=== PATIENT | male | born 1935 | race Caucasian/White ===

== ENCOUNTER 2023-11-19 14:40 | Inpatient (IN) ==
[2023-11-19] MEDS: OPTIRAY 320 125ml IV ONE (14:48)
--- NOTE | 2023-11-19 14:54 | Emergency Department Note ---
Impression & Plan Stroke-like symptoms, Fall, Fracture of wrist ED Provider Note NAME: KASSIE DICKERSON AGE: 88 SEX: M : 1935 ARRIVES VIA: Ambulance INFORMANT: Patient ED PROVIDER(S): Denton Mackay DO CHIEF COMPLAINT: Slurred speech and left-sided weakness HPI: Patient is an 88-year-old gentleman who presents to the ER with past medical history of an intracerebral hemorrhage, hypertension and cerebral infarct/CVA x 3. Patient notes that he went to get up from a chair around 12:00 and was dizzy and fell to the ground. He noticed some left arm weakness and some slurred speech. He admits to previous history of 3 previous strokes. He denies any brain bleeds. No chest pain or shortness of breath. No belly pain nausea vomiting or diarrhea. No dysuria urgency or frequency. No other exacerbating or remitting factors. Additional history provided by EMS and notes that he had a left-sided facial droop as well as left arm weakness. Additional history was obtained by daughter eventually who notes that he did have a previous brain bleed back in 2021. ADDITIONAL HISTORY OBTAINED: Per HPI Chronic Medical/Social Conditions Affecting Care: Per HPI PAST MEDICAL HISTORY:See Below PAST SURGICAL HISTORY:See Below FAMILY HISTORY:See Below SOCIAL HISTORY:See Below HOME MEDICATIONS:See Below ALLERGIES:See Below VITALS:See Below PHYSICAL EXAMINATION: GENERAL: Sitting up in bed, alert, well appearing, well nourished, no distress, non-toxic EYE EXAM: normal conjunctiva. PERRL and EOM's intact. OROPHARYNX: no exudate, no erythema, lips, buccal mucosa, and tongue normal and mucous membranes are moist NECK: supple, no nuchal rigidity, no adenopathy, non-tender LUNGS: Clear to auscultation. Normal chest wall mechanics HEART: no murmurs, S1 normal and S2 normal ABDOMEN: abdomen soft, non-tender, normo-active bowel sounds, no masses, no rebound or guarding. LOWER EXTREMITIES: No pitting edema. NEURO EXAM: Normal sensorium, cranial nerves II-XII intact with the exception of a slight left-sided facial droop, normal speech, weakness of the left arm with grasp as well as flexion extension of the wrist shoulder., no weakness of legs. No drift. Finger to nose intact. Gross sensation intact. MEDICAL DECISION MAKING: Patient is an 88-year-old male who presents ER for above-stated complaint. IV was established blood work is obtained. I received medical command call and due to left arm weakness and slurred speech stroke alert was called. Discussed with [facility] several times labs show no significant leukocytosis or anemia. INR unremarkable. BMP was fairly unremarkable with a slightly low magnesium at 1.3. T. bili LFTs were unremarkable. UA was negative. CTA of the head and neck was discussed and reviewed with telestroke neurology and after multiple discussions with family and finally receiving records from [facility] we were able to determine that this gentleman was not a TNK candidate due to the previous history of an intracerebral hemorrhage. This was eventually discovered and confirmed as well in [facility] records by her she telestroke neurologist. I updated the patient and daughter in regards to this. Patient was discussed with the hospitalist for further evaluation management treatment. Allowed for permissive hypertension. Consults/Care Managements Discussions: Per [facility] Triage Nursing notes reviewed. Limited review of prior medical records performed Vital Signs: reviewed and remarkable for no significant abnormalities Differential diagnosis: Differential Diagnosis includes but is not limited to ischemic Stroke, hemorrhagic stroke, bells palsy, mass, neoplasm, migraine headache, seizure, subarachnoid hemorrhage, TIA, and transient global amnesia. ER treatment provided: See below Diagnostics interpreted by me include EKG and cardiac monitoring as listed below: -Cardiac Monitoring: An order was placed for continuous cardiac monitoring. The monitor shows a rate of 62 with sinus rhythm. -ECG: Sinus rhythm rate 69 Left axis PVCs QTc 456 -Laboratory studies:Interpreted by me as stated above in MDM and shown below. Imaging studies: Xrays: As interpreted by me: X-rays of the left wrist show left distal radial and scaphoid fracture CTs show: CT angios of the head and neck were negative Procedures:none Critical Care:I have personally spent 31 minutes of critical care time in the direct management of this patient. This includes bedside care, interpretation of diagnostic studies, and testing, discussion with consultants, patient, and family members, and other required patient management activities. This 31 minutes is in excess of all separately billable procedures. Past Med/Surg History Medical History Atrial fibrillation hx of 4-5yrs, currently has a loop recordered in placed---follows with Dr. River Wood Cerebral infarction x3--last Oct 2021--has limited visual field, uses a walker to ambulate; [facility] Constipation Diabetes mellitus Hearing loss Hypertension Overactive bladder Scoliosis Surgical History History of eye surgery History of hernia surgery History of left common carotid artery stent placement History of loop recorder currently in placed, placed Fall 2021 History of tooth extraction Status post trigger finger release Family History Other No family history of adverse response to anesthesia Denies family history of Crohn's disease Colorectal cancer Ulcerative colitis Social History (Updated 11/19/23 @ 18:30 by Juany Day PA-C) Smoking Status: Former smoker Second Hand Exposure: No; Do You Dip or Chew Tobacco: No; Hx Alcohol Use: No Hx Substance Use: No Preferred Language: Israeli Communication Ability: Effective Relay Associate Required: No Beliefs That Will Affect Care: None Current Living Situation: Retirement Current Living Situation Comment: [place] in [employer] current occupational status: retired Feels Safe at Home: Yes Assistive Devices: Glasses, Hearing Aid - Bilateral and Walker Allergies Allergies Allergy/AdvReac Type Severity Reaction Status Date / Time rivaroxaban [From Xarelto] AdvReac Mild instructed Verified 11/19/23 16:02 not to take due to hx of brain bleed Home Meds Home Medications Medication Instructions Recorded Confirmed acetaminophen 500 mg tablet 500 mg PO Q4 PRN Pain 11/19/23 11/19/23 (Tylenol Extra Strength) aspirin 81 mg tablet,delayed 81 mg PO DAILY 11/19/23 11/19/23 release atorvastatin 20 mg tablet 20 mg PO HS 11/19/23 11/19/23 celecoxib 100 mg capsule (Celebrex) 100 mg PO QAM 11/19/23 11/19/23 docusate sodium 100 mg capsule 100 mg PO BID 11/19/23 11/19/23 hydrochlorothiazide 25 mg tablet 12.5 mg PO DAILY 11/19/23 11/19/23 isosorbide mononitrate 60 mg 30 mg PO QAM 11/19/23 11/19/23 tablet,extended release 24 hr losartan 100 mg tablet 100 mg PO DAILY 11/19/23 11/19/23 metformin 500 mg tablet 500 mg PO BID 11/19/23 11/19/23 metoprolol succinate 50 mg 50 mg PO DAILY 11/19/23 11/19/23 tablet,extended release 24 hr multivitamin 1 tab PO QAM 11/19/23 11/19/23 omeprazole 20 mg capsule,delayed 20 mg PO DAILY 11/19/23 11/19/23 release terbinafine HCl 1 % topical cream 1 applic topical BID 11/19/23 11/19/23 Results & Data (ED) Vital Signs Vital Signs - 24 hr 11/19/23 15:02 11/19/23 15:02 11/19/23 15:07 Temperature 36.5 C Temperature Source Oral Pulse Rate 71 73 Pulse Rate from SpO2 Sensor Pulse Rhythm Regular Pulse Strength Normal Respiratory Rate 20 23 Respiratory Effort / Characteristics Non-Labored Spontaneous Respiratory Depth Normal Respiratory Pattern Regular Blood Pressure 170/99 H 170/99 H Blood Pressure Mean 122 122 Blood Pressure Position Sitting Pulse Oximetry 96 96 97 Oxygen Delivery Method Room Air Room Air Room Air Sepsis Recent Fever Within 48 Hours No Sepsis New/Unexplained Change in Mental Status No Sepsis Action Taken by Nursing No Action Required 11/19/23 15:11 11/19/23 15:19 11/19/23 15:30 Temperature Temperature Source Pulse Rate 72 68 73 Pulse Rate from SpO2 Sensor 72 90 Pulse Rhythm Pulse Strength Respiratory Rate 20 16 Respiratory Effort / Characteristics Respiratory Depth Respiratory Pattern Blood Pressure 178/76 H 192/84 H Blood Pressure Mean 110 120 Blood Pressure Position Pulse Oximetry 94 92 Oxygen Delivery Method Room Air Room Air Sepsis Recent Fever Within 48 Hours Sepsis New/Unexplained Change in Mental Status Sepsis Action Taken by Nursing 11/19/23 15:45 11/19/23 16:01 Temperature Temperature Source Pulse Rate 68 72 Pulse Rate from SpO2 Sensor 69 69 Pulse Rhythm Pulse Strength Respiratory Rate 25 H 22 Respiratory Effort / Characteristics Respiratory Depth Respiratory Pattern Blood Pressure 175/78 H 194/87 H Blood Pressure Mean 110 122 Blood Pressure Position Pulse Oximetry 94 96 Oxygen Delivery Method Room Air Room Air Sepsis Recent Fever Within 48 Hours Sepsis New/Unexplained Change in Mental Status Sepsis Action Taken by Nursing Laboratory Data 11/19/23 15:08 11/19/23 15:08 Lab Results 11/19/23 Range/Units 15:08 WBC 7.71 (4.8-10.8) K/ul RBC 4.40 L (4.70-6.10) M/uL Hgb 13.7 L (14.0-18.0) g/dl Hct 39.6 L (42.0-52.0) % MCV 90.0 (80.0-100.0) fL MCH 31.1 (25.0-34.0) pg MCHC 34.6 (32.0-36.0) g/dL RDW Std Deviation 44.6 (36.4-46.3) fL RDW Coeff of Anjel 13.6 (11.5-14.5) % Plt Count 179 (130-400) K/uL MPV 10.1 (9.4-12.4) fL Immature Gran % (Auto) 0.5 % Neut % (Auto) 75.8 % Lymph % (Auto) 16.5 % [place] % (Auto) 4.9 % Eos % (Auto) 1.9 % Baso % (Auto) 0.4 % Neut # (Auto) 5.84 (1.40-6.50) K/uL Lymph # (Auto) 1.27 (1.20-3.40) K/uL [place] # (Auto) 0.38 (0.11-0.59) K/uL Eos # (Auto) 0.15 (0.00-0.50) K/uL Baso # (Auto) 0.03 (0.00-0.20) K/uL Immature Gran # (Auto) 0.04 (0.01-0.20) K/uL PT 11.2 (9.0-12.0) Seconds INR 1.0 (0.9-1.1) APTT 28 (21-31) Seconds PTT Ratio 1.0 Sodium 138 (136-145) mmol/L Potassium 4.1 (3.5-5.1) mmol/L Chloride 109 H (98-107) mmol/L Carbon Dioxide 21 (21-32) mmol/L Anion Gap 8 (3-11) BUN 20 (6-23) mg/dl Creatinine 0.89 (0.6-1.4) mg/dl Est Cr Clr Drug Dosing 62.5 ml/min Est GFR ( Amer) 89.1 ml/min Est GFR (Non-Af Amer) 76.9 ml/min BUN/Creatinine Ratio 22.5 H (10-20) Glucose 138 H (70-99(Fasting)) mg/dl Calcium 7.1 L (8.6-10.3) mg/dl Magnesium 1.3 L (1.7-2.4) mg/dl Total Bilirubin 0.4 (0.2-1.0) mg/dl AST 19 (13-39) U/L ALT 20 (7-52) U/L Alkaline Phosphatase 59 (34-104) U/L Troponin I High Sens 6.8 (0-20) pg/ml Total Protein 4.9 L (6.0-8.3) gm/dl Albumin 3.1 L (3.4-5.0) gm/dl Globulin 1.8 L (2.5-4.0) gm/dl Albumin/Globulin Ratio 1.7 (0.9-2) Administered Medications Discontinued Medications Acetaminophen (Ofirmev) 1,000 mg in 100 mls @ 400 mls/hr IV NOW STA Stop: 11/19/23 16:20 Last Infusion: 11/19/23 16:32 Dose: Infused Documented By: Admin: 11/19/23 16:17 Dose: 400 mls/hr Documented By: EREN Magnesium Sulfate/Dextrose (Magnesium Sulfate / D5w) 1 gm in 100 mls @ 50 mls/hr IV Q2H HAILEE Stop: 11/19/23 20:14 Last Infusion: 11/19/23 19:39 Dose: Infused Documented By: Admin: 11/19/23 16:23 Dose: 50 mls/hr Documented By: EREN Ioversol (Optiray 320 125ml) 118 ml IV ONCE ONE Stop: 11/19/23 14:49 Last Admin: 11/19/23 14:48 Dose: 118 ml Documented By: KIMBERLY Labetalol HCl (Labetalol Hcl Iv 5 Mg/Ml 20ml) 10 mg IV NOW STA Stop: 11/19/23 16:07 Last Admin: 11/19/23 16:16 Dose: 10 mg Documented By: EREN Co-signed By: MILAN Imaging Data Radiologist's Impression: Head CT 11/19/23 14:36 CT head/brain wo con CLINICAL HISTORY: 88 years-old Male with neuro deficit, acute stroke suspected. Acute strokelike symptoms TECHNIQUE: Multiple axial CT images of the head were obtained without contrast. A dose lowering technique was utilized adhering to the principles of ALARA. COMPARISON: CTA head of same day, head CT 10/05/2022 FINDINGS: No acute intracranial hemorrhage, midline shift, intracranial mass, hydrocephalus, territorial ischemia or abnormal extra-axial collection. Involutional changes with chronic microvascular ischemic disease. Right occipital encephalomalacia from chronic insult. Unchanged linear calcifications within the left external capsule/lentiform nuclear distribution. Study is mildly motion degraded. Cerebral vascular calcifications. The calvarium is intact. Prior bilateral lens repair. The paranasal sinuses, mastoid air cells, and middle ear cavities are clear. IMPRESSION: No acute intracranial abnormality. ACT 112: Negative or not required by law. The above report was generated using voice recognition software. It may contain grammatical, syntax or spelling errors. Electronically signed by: Faustino Pierce M.D. 11/19/2023 4:04 PM Head CTA 11/19/23 14:36 HEAD CTA HISTORY: Left-sided weakness. neuro deficit, acute stroke suspected TECHNIQUE: Multiaxial CT images of the head were performed both before and after the intravenous administration of contrast to evaluate the major cerebral vessels. 3D/MIP images were also obtained. Sagittal and coronal reformats were reviewed. A dose lowering technique was utilized adhering to the principles of ALARA. COMPARISON: None. FINDINGS: There is no mass, hematoma, midline shift, or acute infarct. Encephalomalacia within the right occipital lobe consistent with an old right MORTAR MAKER territory infarct. Visualized intracranial internal carotid arteries, distal vertebral arteries, and basilar artery are widely patent. There is no significant stenosis, occlusion, or aneurysm seen within the bilateral ACAs, MCAs, or left MORTAR MAKER. The major dural venous sinuses are patent. Moderate calcified plaque within the bilateral carotid siphons. Focal moderate to severe stenosis within the right P1 segment on image 130. However, the distal branches are widely patent. IMPRESSION: 1. Focal moderate to severe stenosis of the right P1 segment. However, the distal branches are widely patent. This may account for the old right MORTAR MAKER territory infarct. 2. Otherwise, no significant stenosis, occlusion, or aneurysm within the remaining [place]. ACT 112: Negative or not required by law. Electronically signed by: Jasiel Reardon M.D. 11/19/2023 3:15 PM Neck CTA 11/19/23 14:36 CT ANGIOGRAPHY OF THE NECK WITH CONTRAST CLINICAL HISTORY: neuro deficit, acute stroke suspected COMPARISON STUDY: Cervical spine CT September 25, 2022. Technique: CT angiography of the carotid and vertebral arteries was obtained using Optiray and 3D reconstruction on an independent workstation. NASCET criteria was utilized. Automated exposure control was utilized for the study. A dose lowering technique was utilized adhering to the principles of ALARA. CT DOSE: 1149.1 mGy.cm Findings: Visualized portions of the lung apices are unremarkable. There is no cervical spine fracture. No cervical lymphadenopathy is present. There is moderate stenosis at the origin of the right vertebral artery. The left vertebral artery is dominant and patent. There is no dissection or aneurysm within the neck. There is extensive plaque within the proximal left subclavian artery which results in mild stenosis. There is moderate plaque within the left common carotid artery without significant stenosis. The cervical left internal carotid artery is patent. There is moderate plaque within the right carotid bifurcation and the proximal right cervical internal carotid artery. This results in mild stenosis. Vessel measures 2.9 mm at site of narrowing and 4.1 mm distally. No severe stenoses are identified within the bilateral common carotid or cervical internal carotid arteries. IMPRESSION: 1. Moderate atherosclerotic plaque. Mild (30%) stenosis of the proximal right internal carotid artery. No stenosis within the cervical left internal carotid artery. 2. Moderate stenosis at the origin of the right vertebral artery. Dominant, patent left vertebral artery. ACT 112: Negative or not required by law. Electronically signed by: Franco Hernández M.D. 11/19/2023 3:07 PM Wrist X-Ray 11/19/23 14:59 XR wrist LT min 3V routine CLINICAL HISTORY: Fall; left wrist deformity COMPARISON: None FINDINGS: There is an acute displaced distal left radial fracture with intra- articular extension. Dorsal displacement of the distal fragment by 8 mm is noted. Fracture is mildly angulated. There is an acute minimally distracted fracture of the ulnar styloid. There is also a lucency within the scaphoid waist suggestive of a nondisplaced fracture. IMPRESSION: 1. Acute displaced oblique distal left radial fracture with intra-articular extension. 2. Probable acute nondisplaced scaphoid waist fracture. 3. Acute minimally distracted fracture of the ulnar styloid. ACT 112: Negative or not required by law. Electronically signed by: Franco Hernández M.D. 11/19/2023 3:27 PM Forearm X-Ray 11/19/23 15:09 XR forearm LT 2V HISTORY: 88 years-old Male l arm acute pain of the left forearm and wrist status post fall COMPARISON: Left wrist radiographs of same day TECHNIQUE: 2 views of the left forearm FINDINGS: There is an acute displaced distal left radial fracture with intra-articular extension. Dorsal displacement of the distal fragment by 8 mm is noted. Fracture is mildly angulated. There is an acute minimally distracted fracture of the ulnar styloid. Acute nondisplaced scaphoid waist fracture. IMPRESSION: 1. Acute, comminuted intra-articular, impacted and displaced distal radial fracture. 2. Acute comminuted mildly displaced ulnar styloid fracture. 3. Acute nondisplaced scaphoid waist fracture. ACT 112: Negative or not required by law. The above report was generated using voice recognition software. It may contain grammatical, syntax or spelling errors. Electronically signed by: Faustino Pierce M.D. 11/19/2023 3:52 PM Discharge Plan Visit Data Chief Complaint: Stroke Alert Stated Complaint: STROKE ALERT ED Provider: Denton Mackay Discharge Problem: Stroke-like symptoms, Fall, Fracture of wrist Patient Disposition: Admitted As Inpatient Discharge Instructions Interventions: ED Discharge Assessment Last Done: 11/19/23 19:07 Discharge Problem: Fall Qualifiers: Encounter type: initial encounter Qualified Code(s): W19.XXXA - Unspecified fall, initial encounter Fracture of wrist Qualifiers: Encounter type: initial encounter Fracture type: closed Laterality: left Q ualified Code(s): S62.102A - Fracture of unspecified carpal bone, left wrist, initial encounter for closed fracture
--- NOTE | 2023-11-19 15:08 | CT Scan Report ---
CT ANGIOGRAPHY OF THE NECK WITH CONTRAST CLINICAL HISTORY: neuro deficit, acute stroke suspected COMPARISON STUDY: Cervical spine CT September 25, 2022. Technique: CT angiography of the carotid and vertebral arteries was obtained using Optiray and 3D rec onstruction on an independent workstation. NASCET criteria was utilized. Automated exposure control was utilized for the study. A dose lowering technique was utilized adhering to the principles of ALA RA. CT DOSE: 1149.1 mGy.cm Findings: Visualized portions of the lung apices are unremarkable. There is no cervical spine fractur e. No cervical lymphadenopathy is present. There is moderate stenosis at the origin of the right vert ebral artery. The left vertebral artery is dominant and patent. There is no dissection or aneurysm wi thin the neck. There is extensive plaque within the proximal left subclavian artery which results in mild stenosis. There is moderate plaque within the left common carotid artery without significant angel nosis. The cervical left internal carotid artery is patent. There is moderate plaque within the right carotid bifurcation and the proximal right cervical internal carotid artery. This results in mild st enosis. Vessel measures 2.9 mm at site of narrowing and 4.1 mm distally. No severe stenoses are ident ified within the bilateral common carotid or cervical internal carotid arteries. IMPRESSION: 1. Moderate atherosclerotic plaque. Mild (30%) stenosis of the proximal right internal carotid artery . No stenosis within the cervical left internal carotid artery. 2. Moderate stenosis at the origin of the right vertebral artery. Dominant, patent left vertebral art alex. ACT 112: Negative or not required by law. Electronically signed by: Franco Hernández M.D. 11/19/2023 3:07 PM
--- NOTE | 2023-11-19 15:17 | CT Scan Report ---
HEAD CTA HISTORY: Left-sided weakness. neuro deficit, acute stroke suspected TECHNIQUE: Multiaxial CT images of the head were performed both before and after the intravenous admi nistration of contrast to evaluate the major cerebral vessels. 3D/MIP images were also obtained. Sag ittal and coronal reformats were reviewed. A dose lowering technique was utilized adhering to the wily [place]. COMPARISON: None. FINDINGS: There is no mass, hematoma, midline shift, or acute infarct. Encephalomalacia within the ri ght occipital lobe consistent with an old right TURRET LATHE SET UP OPERATOR territory infarct. Visualized intracranial photo intern al carotid arteries, distal vertebral arteries, and basilar artery are widely patent. There is no sig nificant stenosis, occlusion, or aneurysm seen within the bilateral ACAs, MCAs, or left TURRET LATHE SET UP OPERATOR. The amanda r dural venous sinuses are patent. Moderate calcified plaque within the bilateral carotid siphons. Fo froylan moderate to severe stenosis within the right P1 segment on image 130. However, the distal branche s are widely patent. IMPRESSION: 1. Focal moderate to severe stenosis of the right P1 segment. However, the distal branches are widely patent. This may account for the old right TURRET LATHE SET UP OPERATOR territory infarct. 2. Otherwise, no significant stenosis, occlusion, or aneurysm within the remaining [place]. ACT 112: Negative or not required by law. Electronically signed by: Jasiel Reardon M.D. 11/19/2023 3:15 PM
[2023-11-19 15:26] LABS: Basophils # (auto) 0.03 K/uL (0.00-0.20); Basophils % (auto) 0.4 %; Eosinophils # (auto) 0.15 K/uL (0.00-0.50); Eosinophils % (auto) 1.9 %; Hematocrit (blood only) 39.6 % (42.0-52.0); Hemoglobin 13.7 g/dl (14.0-18.0); Immature Granulocytes # (auto) 0.04 K/uL (0.01-0.20); Immature Granulocytes % (auto) 0.5 %; Lymphocytes # (auto) 1.27 K/uL (1.20-3.40); Lymphocytes % (auto) 16.5 %; Mean Corpuscular Hemoglobin 31.1 pg (25.0-34.0); Mean Corpuscular Hgb Conc 34.6 g/dL (32.0-36.0); Mean Platelet Volume 10.1 fL (9.4-12.4); Monocytes # (auto) 0.38 K/uL (0.11-0.59); Monocytes % (auto) 4.9 %; Neutrophils # (auto) 5.84 K/uL (1.40-6.50); Neutrophils % (auto) 75.8 %; Platelet Count 179 K/uL (130-400); RDW Coefficient of Variation 13.6 % (11.5-14.5); RDW Standard Deviation 44.6 fL (36.4-46.3); White Blood Count 7.71 K/ul (4.8-10.8)
--- NOTE | 2023-11-19 15:28 | XRay Report ---
XR wrist LT min 3V routine CLINICAL HISTORY: Fall; left wrist deformity COMPARISON: None FINDINGS: There is an acute displaced distal left radial fracture with intra-articular extension. Do rsal displacement of the distal fragment by 8 mm is noted. Fracture is mildly angulated. There is an acute minimally distracted fracture of the ulnar styloid. There is also a lucency within the scaphoid waist suggestive of a nondisplaced fracture. IMPRESSION: 1. Acute displaced oblique distal left radial fracture with intra-articular extension. 2. Probable acute nondisplaced scaphoid waist fracture. 3. Acute minimally distracted fracture of the ulnar styloid. ACT 112: Negative or not required by law. Electronically signed by: Franco Hernández M.D. 11/19/2023 3:27 PM
[2023-11-19 15:41] LABS: Albumin Globulin Ratio 1.7 (0.9-2); Albumin Level 3.1 gm/dl (3.4-5.0); BUN Creatinine Ratio 22.5 (10-20); Bilirubin,Total 0.4 mg/dl (0.2-1.0); Calcium 7.1 mg/dl (8.6-10.3); Creatinine Clr Calc Pharmacy 62.5 ml/min; Est GFR (African American) 89.1 ml/min; Est GFR (Non-African American) 76.9 ml/min; Globulin 1.8 gm/dl (2.5-4.0); Magnesium 1.3 mg/dl (1.7-2.4); Potassium 4.1 mmol/L (3.5-5.1); Total Protein 4.9 gm/dl (6.0-8.3)
--- NOTE | 2023-11-19 15:41 | History & Physical Report ---
Date of Service November 19, 2023 Assessment & Plan (1) Stroke-like symptoms: Plan: This is an 88 y/o male with a history of prior CVA x 3, atrial fibrillation, not on AC due to prior hemorrhagic stroke, DM2, HTN, overactive bladder and other history as outlined below who presented from [facility] after a fall with associated dizziness, left arm weakness, and slurred speech. Stroke alert was called in the ED and initial work-up was negative for acute CVA. Pt was referred for admission for additional work-up. He is not anticoagulation as he developed hemorrhagic CVA with Xarelto. - Admit to PCU - MRI brain to better evaluate for acute CVA - of note, pt has had at least three CVAs previously. - Neuro checks per protocol - Consult neurology - Check ECHO - Failed bedside swallow per nursing so consult speech therapy - will keep pt NPO until evaluated by speech - PT/OT evals (2) Left wrist fracture: Plan: Consult orthopedics for recommendations and splinting Scheduled IV acetaminophen with prn IV morphine for severe pain - discussed with patient the risk of delirium with opioids (3) Falls: Plan: Fall precautions PT/OT evaluation Orthostatic vitals (4) Atrial fibrillation: Plan: Not on anticoagulation due to prior hemorrhage on Xarelto Appears rate-controlled on current beta-rik - will continue to monitor (5) Diabetes mellitus: Plan: Holding Metformin Insulin sliding scale A1c in AM (6) Hypertension: Plan: Will allow permissive hypertension in view of recurrent falls, possible orthostasis, possible CVA - goal BP in the 140s to 150s for now Since NPO and outpatient BP meds on hold, will use IV labetalol prn SBP >160 and reassess tomorrow Consider stopping HCTZ due to concern for orthostatic hypotension, especially since pt has not been eating well or drinking fluids consistently Plan Pt seen and reviewed with collaborating physician, Dr. Barillas. Plan of care discussed and as outlined above. Code Status: DNR/DNI DVT Prophylaxis: SCDs for now Priti Day PA-C History of Present Illness Chief Complaint: stroke alert Primary Care Provider: Rievr Zavaleta MD This is an 88 y/o male with a history of prior CVA x 3, atrial fibrillation, not on AC due to prior hemorrhagic stroke, DM2, HTN, overactive bladder and other history as outlined below who presented from [facility] after a fall with associated dizziness, left arm weakness, and slurred speech. A stroke alert was called upon arrival to the ED. EMS noted left facial droop and left arm weakness upon evaluation. Additional history obtained from both patient and his daughter at the bedside. Pt apparently fell a couple of weeks ago - fell backwards with getting up. This morning around 4 am, pt went to get up to go to the bathroom and again felt like he was blacking out, falling onto his left wrist. Resultant weakness and sensation of numbness/tingling in the left hand after this fall. Around noon today, he went to get up from his lounge chair to go to lunch when he again felt dizzy, tried to walk with his walker but couldn't venereal disease control head with his left hand and fell backwards. After this fall, EMS was called and pt was brought to the ED. Initial work-up in the ED was negative for acute CVA. However, neurologist recommended referral for admission for additional work-up including MRI. Additionally, pt found to have left wrist fracture, likely from fall early this morning. Currently, pt continues to have numbness and tight sensation in his left wrist. Pt also notes new left perioral tingling but is unclear if the facial droop was new. His daughter notes that he has not been getting his losartan consistently due to an issue with the facility obtaining the medication due to insurance - review of the MAR shows that his last dose was three days ago. She also reports that pt has been inconsistent with taking his statin as she has found pills in his room at times. She reports that the Gemtesa was stopped as it was not helping pt's symptoms even though it is still on his med list from [facility]. Allergies Allergy/AdvReac Type Severity Reaction Status Date / Time rivaroxaban [From Xarelto] AdvReac Mild instructed Verified 11/19/23 16:02 not to take due to hx of brain bleed Home Medications Medication Instructions Recorded Confirmed Type acetaminophen 500 mg tablet 500 mg PO Q4 PRN Pain 11/19/23 11/19/23 History (Tylenol Extra Strength) aspirin 81 mg tablet,delayed 81 mg PO DAILY 11/19/23 11/19/23 History release atorvastatin 20 mg tablet 20 mg PO HS 11/19/23 11/19/23 History celecoxib 100 mg capsule (Celebrex) 100 mg PO QAM 11/19/23 11/19/23 History docusate sodium 100 mg capsule 100 mg PO BID 11/19/23 11/19/23 History hydrochlorothiazide 25 mg tablet 12.5 mg PO DAILY 11/19/23 11/19/23 History isosorbide mononitrate 60 mg 30 mg PO QAM 11/19/23 11/19/23 History tablet,extended release 24 hr losartan 100 mg tablet 100 mg PO DAILY 11/19/23 11/19/23 History metformin 500 mg tablet 500 mg PO BID 11/19/23 11/19/23 History metoprolol succinate 50 mg 50 mg PO DAILY 11/19/23 11/19/23 History tablet,extended release 24 hr multivitamin 1 tab PO QAM 11/19/23 11/19/23 History omeprazole 20 mg capsule,delayed 20 mg PO DAILY 11/19/23 11/19/23 History release terbinafine HCl 1 % topical cream 1 applic topical BID 11/19/23 11/19/23 History Past Med/Surg History Medical History Atrial fibrillation hx of 4-5yrs, currently has a loop recordered in placed---follows with Dr. Viv Wood Cerebral infarction x3--last Oct 2021--has limited visual field, uses a walker to ambulate; [facility] Constipation Diabetes mellitus Hearing loss Hypertension Overactive bladder Scoliosis Surgical History History of eye surgery History of hernia surgery History of left common carotid artery stent placement History of loop recorder currently in placed, placed Fall 2021 History of tooth extraction Status post trigger finger release Family History Other No family history of adverse response to anesthesia Denies family history of Crohn's disease Colorectal cancer Ulcerative colitis Social History (Updated 11/19/23 @ 18:30 by Juany Day PA-C) Smoking Status: Former smoker Second Hand Exposure: No; Do You Dip or Chew Tobacco: No; Hx Alcohol Use: No Hx Substance Use: No Preferred Language: Portuguese Communication Ability: Effective Planning Supervisor Required: No Beliefs That Will Affect Care: None Current [facility]uation[facility] Current Living Situation Comment: [facility] in [employer] current occupational status: retired Feels Safe at Home: Yes Assistive Devices: Glasses, Hearing Aid - Bilateral and Walker Review of Systems Review of Systems: All systems reviewed & are unremarkable except as noted in HPI & below (somewhat limited to memory although daughter did assist when possible) Physical Exam Physical Exam: See physician addendum for details of the physical exam Results & Data Results & Data Vital Signs (Past 12 Hours) Vital Signs Temp Pulse Resp BP Pulse Ox O2 Del Method 11/19/23 15:19 68 20 178/76 H 94 Room Air 11/19/23 15:11 72 11/19/23 15:07 73 23 170/99 H 97 Room Air 11/19/23 15:02 96 Room Air 11/19/23 15:02 36.5 C 71 20 170/99 H 96 Room Air Laboratory Results Laboratory Results - last 24 hr 11/19/23 15:08 WBC 7.71 RBC 4.40 L Hgb 13.7 L Hct 39.6 L MCV 90.0 MCH 31.1 MCHC 34.6 RDW Std Deviation 44.6 RDW Coeff of Anjel 13.6 Plt Count 179 MPV 10.1 Immature Gran % (Auto) 0.5 Neut % (Auto) 75.8 Lymph % (Auto) 16.5 [place] % (Auto) 4.9 Eos % (Auto) 1.9 Baso % (Auto) 0.4 Neut # (Auto) 5.84 Lymph # (Auto) 1.27 [place] # (Auto) 0.38 Eos # (Auto) 0.15 Baso # (Auto) 0.03 Immature Gran # (Auto) 0.04 PT 11.2 INR 1.0 APTT 28 PTT Ratio 1.0 Sodium 138 Potassium 4.1 Chloride 109 H Carbon Dioxide 21 Anion Gap 8 BUN 20 Creatinine 0.89 Est Cr Clr Drug Dosing 62.5 Est GFR ( Amer) 89.1 Est GFR (Non-Af Amer) 76.9 BUN/Creatinine Ratio 22.5 H Glucose 138 H Calcium 7.1 L Magnesium 1.3 L Total Bilirubin 0.4 AST 19 ALT 20 Alkaline Phosphatase 59 Troponin I High Sens 6.8 Total Protein 4.9 L Albumin 3.1 L Globulin 1.8 L Albumin/Globulin Ratio 1.7 Diagnostic Findings Head CTA 11/19/23 14:36 HEAD CTA HISTORY: Left-sided weakness. neuro deficit, acute stroke suspected TECHNIQUE: Multiaxial CT images of the head were performed both before and after the intravenous administration of contrast to evaluate the major cerebral vessels. 3D/MIP images were also obtained. Sagittal and coronal reformats were reviewed. A dose lowering technique was utilized adhering to the principles of ALARA. COMPARISON: None. FINDINGS: There is no mass, hematoma, midline shift, or acute infarct. Encephalomalacia within the right occipital lobe consistent with an old right AVIATION CONS[employer]ANT territory infarct. Visualized intracranial internal carotid arteries, distal vertebral arteries, and basilar artery are widely patent. There is no significan t stenosis, occlusion, or aneurysm seen within the bilateral ACAs, MCAs, or left [employer]ATION CONS[employer]ANT. The major dural venous sinuses are patent. Moderate calcified plaque within the bilateral carotid siphons. Focal moderate to severe stenosis within the right P1 segment on image 130. However, the distal branches are widely patent. IMPRESSION: 1. Focal moderate to severe stenosis of the right P1 segment. However, the distal branches are widely patent. This may account for the old right [employer]IATION CONS[employer]ANT territory infarct. 2. Otherwise, no significant stenosis, occlusion, or aneurysm within the remaining q[place] of [place]. ACT 112: Negative or not required by law. Electronically signed by: Jasiel Reardon M.D. 11/19/2023 3:15 PM Neck CTA 11/19/23 14:36 CT ANGIOGRAPHY OF THE NECK WITH CONTRAST CLINICAL HISTORY: neuro deficit, acute stroke suspected COMPARISON STUDY: Cervical spine CT September 25, 2022. Technique: CT angiography of the carotid and vertebral arteries was obtained using Optiray and 3D reconstruction on an independent workstation. NASCET criteria was utilized. Automated exposure control was utilized for the study. A dose lowering technique was utilized adhering to the principles of ALARA. CT DOSE: 1149.1 mGy.cm Findings: Visualized portions of the lung apices are unremarkable. There is no cervical spine fracture. No cervical lymphadenopathy is present. There is moderate stenosis at the origin of the right vertebral artery. The left vertebral artery is dominant and patent. There is no dissection or aneurysm within the neck. There is extensive plaque within the proximal left subclavian artery which results in mild stenosis. There is moderate plaque within the left common carotid artery without significant stenosis. The cervical left internal carotid artery is patent. There is moderate plaque within the right carotid bifurcation and the proximal right cervical internal carotid artery. This results in mild stenosis. Vessel measures 2.9 mm at site of narrowing and 4.1 mm distally. No severe stenoses are identified within the bilateral common carotid or cervical internal carotid arteries. IMPRESSION: 1. Moderate atherosclerotic plaque. Mild (30%) stenosis of the proximal right internal carotid artery. No stenosis within the cervical left internal carotid artery. 2. Moderate stenosis at the origin of the right vertebral artery. Dominant, patent left vertebral artery. ACT 112: Negative or not required by law. Electronically signed by: Franco Hernández M.D. 11/19/2023 3:07 PM Wrist X-Ray 11/19/23 14:59 XR wrist LT min 3V routine CLINICAL HISTORY: Fall; left wrist deformity COMPARISON: None FINDINGS: There is an acute displaced distal left radial fracture with intra- articular extension. Dorsal displacement of the distal fragment by 8 mm is noted. Fracture is mildly angulated. There is an acute minimally distracted fracture of the ulnar styloid. There is also a lucency within the scaphoid waist suggestive of a nondisplaced fracture. IMPRESSION: 1. Acute displaced oblique distal left radial fracture with intra-articular extension. 2. Probable acute nondisplaced scaphoid waist fracture. 3. Acute minimally distracted fracture of the ulnar styloid. ACT 112: Negative or not required by law. Electronically signed by: Franco Hernández M.D. 11/19/2023 3:27 PM Medications Administered Discontinued Medications Ioversol (Optiray 320 125ml) 118 ml IV ONCE ONE Stop: 11/19/23 14:49 Last Admin: 11/19/23 14:48 Dose: 118 ml Documented By: KIMBERLY Supervising Physician Co-Signing Physician Notes I have seen and discussed the case with the collaborating TRENT. I agree with the above H&P. I have reviewed and confirmed the patients medical history, the findings on physical examination, and the patients diagnosis and treatment plan with Shay NEWMAN and agree with the information documented. In short, Mr. Castillo is an 88 year old gentleman with history of DMTII, HTN, HLD, BPH, paroxysmal atrial fibrillation, ASCVD s/p left CEA , right AVIATION CONSULTANT stroke 2018, CAD s/p Glory LCx 2015, ICH in 2021 c/b left peripheral vision loss and right weakness which improved, who is being admitted for multiple mechanical falls, now complicated by left wrist fracture. History provided by daughter interjection as patient occasionally tangential. Per report, patient has experienced 3 falls in last week. He notes each fall occured while rising from either supine/seated position to standing and walking. He reports presyncopal like symptoms with heaviness, weakness, but denies LOC. Daughter remarks that long term has not been consistent with medications (notably ~3-4 days without losartan) as well as patient pocketing atorvastatin and ?other meds. Patient notes that he has been able to ambulate in last year with a walker, and right sided weakness has improved, but he has chronic right facial droop which is stable. However, he notes new perioral left numbness and dysarthria--both onset early this morning. Around 4 am was the fall he sustained that resulted in wrist fracture, and noon is fall that prompted presentation to ED. Daughter is unclear on much of the events outside of above and patient poor historian. GENERAL APPEARANCE: AxOx3, generally well-appearing male, no acute distress HEENT: NC, AT. MMM. EOMI, clear conjunctiva, oropharynx clear. NECK: Supple without lymphadenopathy. No stiffness or restricted ROM. HEART: irregularly irregular LUNGS: CTAB, moving air well. No crackles or wheezes are heard. ABDOMEN: Soft, nontender, nondistended with good bowel sounds heard. EXTREMITIES: Without cyanosis, clubbing or edema. left wrist deformity radial deviation NEUROLOGICAL: Subtle right facial droop with nasolabial fold flattening, asymmetric smile (chronic), 5/5 strength lower extremities, RUE 5/5, proximal muscle strength 5/5 LUE, sensation altered fine touch left hand (2/2 fracture v related to perioral numbness?) Skin: Warm and dry without any rash. #Left distal radial fracture, scaphoid fracture -Ortho consult -Pain management with tylenol, topical diclofenac, ice -Minimal opioids only in severe pain 2/2 concern for delirium #Stroke-like symptoms #Hypertensive Urgency #Prior Strokes #Prior ICH -Blood pressure control with Labetalol goal < 160 -Utilizing IV labetolol 20mg while NPO -Neuro consulted -Resume ASA, Statin -MRI brain -Dysarthria, perioral numbness--formal speech eval -NPO in interim -ECHO ordered Rest of plan as above I spent a total of 55 minutes coordinating, documenting, and providing care for this patient excluding time spent in the performance of separately billed services. All of the aforementioned completed outside of collaborating with the assigned physician resident assistant for full treatment plan. (2) Left wrist fracture Encounter type: initial encounter Fracture type: closed Qualified Code(s): S62.102A - Fracture of unspecified carpal bone, left wrist, initial encounter for closed fracture (3) Falls Encounter type: initial encounter Qualified Code(s): W19.XXXA - Unspecified fall, initial encounter (4) Atrial fibrillation Atrial fibrillation type: unspecified Qualified Code(s): I48.91 - Unspecified atrial fibrillation (5) Diabetes mellitus Diabetes mellitus complication status: without complication Diabetes mellitus snf insulin use: without medical terminologist use Diabetes mellitus type: type 2 Qualified Code(s): E11.9 - Type 2 diabetes mellitus without complications (6) Hypertension Hypertension type: primary hypertension Qualified Code(s): I10 - Essential (primary) hypertension
[2023-11-19 15:47] LABS: Troponin I High Sensitivity 6.8 pg/ml (0-20)
--- NOTE | 2023-11-19 15:49 | Electrocardiogram Report ---
Test Reason : Blood Pressure : / mmHG Vent. Rate : 069 BPM Atrial Rate : 069 BPM P-R Int : 216 ms QRS Dur : 138 ms QT Int : 426 ms P-R-T Axes : 000 -45 016 degrees QTc Int : 456 ms Sinus rhythm with 1st degree A-V block with occasional Premature ventricular complexes and Premature atrial complexes Right bundle branch block Left anterior fascicular block Abnormal ECG No previous ECGs available Confirmed by Zia Ortiz ([id number]) on 11/19/2023 3:48:36 PM Referred By: REFERRED SELF Confirmed By:Zia Ortiz
[2023-11-19 15:54] LABS: Partial Thromboplastin Time 28 Seconds (21-31); Prothrombin Time 11.2 Seconds (9.0-12.0)
--- NOTE | 2023-11-19 15:54 | XRay Report ---
XR forearm LT 2V HISTORY: 88 years-old Male l arm acute pain of the left forearm and wrist status post fall COMPARISON: Left wrist radiographs of same day TECHNIQUE: 2 views of the left forearm FINDINGS: There is an acute displaced distal left radial fracture with intra-articular extension. Dorsal displa cement of the distal fragment by 8 mm is noted. Fracture is mildly angulated. There is an acute minim ally distracted fracture of the ulnar styloid. Acute nondisplaced scaphoid waist fracture. IMPRESSION: 1. Acute, comminuted intra-articular, impacted and displaced distal radial fracture. 2. Acute comminuted mildly displaced ulnar styloid fracture. 3. Acute nondisplaced scaphoid waist fracture. ACT 112: Negative or not required by law. The above report was generated using voice recognition software. It may contain grammatical, syntax o r spelling errors. Electronically signed by: Faustino Pierce M.D. 11/19/2023 3:52 PM
--- NOTE | 2023-11-19 16:06 | CT Scan Report ---
CT head/brain wo con CLINICAL HISTORY: 88 years-old Male with neuro deficit, acute stroke suspected. Acute strokelike sym ptoms TECHNIQUE: Multiple axial CT images of the head were obtained without contrast. A dose lowering tech nique was utilized adhering to the principles of ALARA. COMPARISON: CTA head of same day, head CT 10/05/2022 FINDINGS: No acute intracranial hemorrhage, midline shift, intracranial mass, hydrocephalus, territorial ischem ia or abnormal extra-axial collection. Involutional changes with chronic microvascular ischemic disea se. Right occipital encephalomalacia from chronic insult. Unchanged linear calcifications within the left external capsule/lentiform nuclear distribution. Study is mildly motion degraded. Cerebral vascu lar calcifications. The calvarium is intact. Prior bilateral lens repair. The paranasal sinuses, mastoid air cells, and m iddle ear cavities are clear. IMPRESSION: No acute intracranial abnormality. ACT 112: Negative or not required by law. The above report was generated using voice recognition software. It may contain grammatical, syntax o r spelling errors. Electronically signed by: Faustino Pierce M.D. 11/19/2023 4:04 PM
[2023-11-19] MEDS: LABETALOL HCL IV 5 MG/ML 20ML IV STA (16:16)
[2023-11-19] MEDS: ACETAMINOPHEN 1,000 MG/100 ML VIAL IV STA (16:17)
[2023-11-19] MEDS: MAGNESIUM SULFATE / D5W 1 GM/100 ML BAG IV SCH (16:23)
[2023-11-19 16:51] LABS: Appearance Urine Clear (Clear); Bilirubin Urine Negative (Negative); Blood Urine Negative (Negative); Color Urine Yellow; Glucose Urine UA Trace (Negative); Ketones Urine Trace (Negative); Leukocyte Esterase Urine Negative (Negative); Nitrite Urine Negative (Negative); Protein Urine Negative (Negative); Urobilinogen Urine Negative (Negative)
[2023-11-19] MEDS ORDERED: CARBOHYDRATES FOR HYPOGLYCEMIA PO PRN (19:18)
[2023-11-19] MEDS ORDERED: MoRPHine SULFATE 2 MG/ML CARP IV PRN (19:18)
[2023-11-19] MEDS ORDERED: DEXTROSE 50% 50 ML SYRINGE IV PRN (19:18)
[2023-11-19] MEDS ORDERED: GLUCOSE 40% GEL 15 GM TUBE PO PRN (19:18)
[2023-11-19] MEDS ORDERED: GLUCAGON FOR INJ 1 MG VIAL SQ PRN (19:18)
[2023-11-19] MEDS ORDERED: GLUCOSE 10 TAB/TUBE PO PRN (19:18)
[2023-11-19] MEDS: INSULIN ASPART PER UNIT CHARGE SC SCH (20:51)
[2023-11-19] MEDS: DICLOFENAC SOD 1% GEL 100 GM TUBE EXT SCH (20:51)
[2023-11-19] MEDS: LABETALOL HCL IV 5 MG/ML 20ML IV PRN (21:45)
[2023-11-20 06:37] LABS: Basophils # (auto) 0.04 K/uL (0.00-0.20); Basophils % (auto) 0.5 %; Eosinophils # (auto) 0.23 K/uL (0.00-0.50); Eosinophils % (auto) 3.1 %; Hematocrit (blood only) 40.2 % (42.0-52.0); Hemoglobin 13.9 g/dl (14.0-18.0); Immature Granulocytes # (auto) 0.08 K/uL (0.01-0.20); Immature Granulocytes % (auto) 1.1 %; Mean Corpuscular Hemoglobin 30.7 pg (25.0-34.0); Mean Corpuscular Hgb Conc 34.6 g/dL (32.0-36.0); Mean Corpuscular Volume 88.7 fL (80.0-100.0); Monocytes # (auto) 0.66 K/uL (0.11-0.59); Neutrophils # (auto) 4.41 K/uL (1.40-6.50); Neutrophils % (auto) 60.3 %; Platelet Count 188 K/uL (130-400); RDW Coefficient of Variation 13.7 % (11.5-14.5); RDW Standard Deviation 44.3 fL (36.4-46.3); Red Blood Count 4.53 M/uL (4.70-6.10); White Blood Count 7.32 K/ul (4.8-10.8)
--- NOTE | 2023-11-20 07:20 | Magnetic Resonance Report ---
MR brain wo con HISTORY: 88 years-old Male stroke alert acute shocklike symptoms COMPARISON: Head CT of same day TECHNIQUE: Multiplanar multisequence MRI of the brain was obtained without the use of IV contrast. FINDINGS: No acute or subacute territorial infarct. There is a 7 mm focus of ill-defined increased diffusion-we ighted signal within the right thalamus on image 12 series 4 which is intermediate signal on the ADC map with slightly increased T2/FLAIR signal. No acute intracranial hemorrhage, midline shift, intracr anial mass, hydrocephalus, or abnormal extra-axial collection. Involutional changes with extensive T2 /FLAIR hyperintense foci throughout the white matter compatible with chronic microvascular ischemic d isease. Right occipital encephalomalacia and gliosis from chronic insult. Unchanged linear calcificat ions within the left external capsule/lentiform nuclear distribution. Study is mildly motion degraded. Cerebral vascular calcifications. The calvarium is intact. Prior clinton ateral lens repair. The paranasal sinuses, mastoid air cells, and middle ear cavities are clear. IMPRESSION: 1. 7 mm ill-defined focus within the right thalamus is suggestive of an acute versus subacute lacunar infarct. 2. No acute or subacute territorial infarct, midline shift or intracranial hemorrhage. 3. Involutional changes with advanced chronic microvascular ischemic disease. 4. Chronic right occipital infarct. ACT 112: Negative or not required by law. The above report was generated using voice recognition software. It may contain grammatical, syntax o r spelling errors. Electronically signed by: Faustino Pierce M.D. 11/20/2023 7:19 AM
[2023-11-20 07:42] LABS: Estimated Average Glucose 171 mg/dl; Hemoglobin A1C 7.6 % (4.5-5.6)
[2023-11-20 07:43] LABS: BUN Creatinine Ratio 18.5 (10-20); Calcium 9.1 mg/dl (8.6-10.3); Creatinine Clr Calc Pharmacy 54.7 ml/min; Est GFR (African American) 86.4 ml/min; Est GFR (Non-African American) 74.5 ml/min; Potassium 4.2 mmol/L (3.5-5.1)
--- NOTE | 2023-11-20 10:18 | Hospitalist Progress Note ---
Date of Service November 20, 2023 Assessment & Plan (1) Stroke-like symptoms: Plan: Thalamic stroke This is an 88 y/o male with a history of prior CVA x 3, atrial fibrillation, not on AC due to prior hemorrhagic stroke, DM2, HTN, overactive bladder and other history as outlined below who presented from [place] after a fall with associated dizziness, left arm weakness, and slurred speech. Stroke alert was called in the ED and initial work-up was negative for acute CVA. Pt was referred for admission for additional work-up. He is not anticoagulation as he developed hemorrhagic CVA with Xarelto. - pt has had at least three CVAs previously. -This is his 4th stroke, he was on xarelto for afib in the past but two years ago had a hemorrhagic transformation and has been on aspirin since. - MRI brain - 1. 7 mm ill-defined focus within the right thalamus is suggestive of an acute versus subacute lacunar infarct. 2. No acute or subacute territorial infarct, midline shift or intracranial hemorrhage. 3. Involutional changes with advanced chronic microvascular ischemic disease. 4. Chronic right occipital infarct. - Neuro checks per protocol - Check Echo - Neurology consulted - -- Switch aspirin 81mg daily to plavix 75mg daily -- Continue lipitor 20mg daily -- Therapy evals for placement -- Neurology follow-up in 4-6 weeks, please contact us with any further questions. - PT/OT evals (2) Left wrist fracture: Plan: Consult orthopedics for recommendations and splinting Scheduled IV acetaminophen with prn IV morphine for severe pain - discussed with patient the risk of delirium with opioids (3) Falls: Plan: Fall precautions PT/OT evaluation Orthostatic vitals (4) Atrial fibrillation: Plan: Not on anticoagulation due to prior hemorrhage on Xarelto Appears rate-controlled on current beta-rik - will continue to monitor (5) Diabetes mellitus: Plan: Holding Metformin Insulin sliding scale Current Hgb A1c 7.6% (6) Hypertension: Plan: Allowed permissive hypertension in view of recurrent falls, possible orthostasis, possible CVA - goal BP in the 140s to 150s for now Consider stopping HCTZ due to concern for orthostatic hypotension, especially since pt has not been eating well or drinking fluids consistently Plan Code Status: DNR/DNI DVT Prophylaxis: SCDs for now Admission and Anticipated Discharge Date Admission Date: November 19, 2023 Subjective Pt seen in follow up of CVA, wrist fracture Currently sitting up in bed, in no acute distress, overall feeling well No headache no chest pain shortness of breath, minimal wrist pain. No abdominal pain nausea vomiting. Patient's daughter present at the bedside and updated. Review of Systems Review of Systems: All systems reviewed & are unremarkable except as noted in Subjective Physical Exam Physical Exam: GENERAL: AxOx3, generally well-appearing male, no acute distress HEENT: NC, AT. MMM. EOMI, clear conjunctiva, oropharynx clear. NECK: Supple without lymphadenopathy. No stiffness or restricted ROM. HEART: regular w/ some ectopic beats LUNGS: CTAB, moving air well. No crackles or wheezes are heard. ABDOMEN: Soft, nontender, nondistended with good bowel sounds heard. EXTREMITIES: left wrist in dressings NEUROLOGICAL: Subtle right facial droop with nasolabial fold flattening, asymmetric smile (chronic), speech fluent, answers appropriately, moves extremities Skin: Warm and dry without any rash. Results & Data Results & Data Vital Signs (Past 12 Hours) Vital Signs Temp Pulse Pulse Resp BP Pulse Ox O2 Del Method 11/20/23 09:00 36.5 C 60 22 181/63 H 97 Room Air 11/20/23 05:17 57 L 11/20/23 02:50 36.6 C 74 18 156/77 H 96 Room Air 11/19/23 22:38 36.7 C 62 18 163/75 H 94 Room Air Laboratory Results 11/20/23 11/20/23 11/19/23 Range/Units 06:18 06:03 20:13 WBC 7.32 (4.8-10.8) K/ul RBC 4.53 L (4.70-6.10) M/uL Hgb 13.9 L (14.0-18.0) g/dl Hct 40.2 L (42.0-52.0) % MCV 88.7 (80.0-100.0) fL MCH 30.7 (25.0-34.0) pg MCHC 34.6 (32.0-36.0) g/dL RDW Std Deviation 44.3 (36.4-46.3) fL RDW Coeff of Anjel 13.7 (11.5-14.5) % Plt Count 188 (130-400) K/uL MPV 10.0 (9.4-12.4) fL Immature Gran % (Auto) 1.1 % Neut % (Auto) 60.3 % Lymph % (Auto) 26.0 % Gregg % (Auto) 9.0 % Eos % (Auto) 3.1 % Baso % (Auto) 0.5 % Neut # (Auto) 4.41 (1.40-6.50) K/uL Lymph # (Auto) 1.90 (1.20-3.40) K/uL Gregg # (Auto) 0.66 H (0.11-0.59) K/uL Eos # (Auto) 0.23 (0.00-0.50) K/uL Baso # (Auto) 0.04 (0.00-0.20) K/uL Immature Gran # (Auto) 0.08 (0.01-0.20) K/uL PT (9.0-12.0) Seconds INR (0.9-1.1) APTT (21-31) Seconds PTT Ratio Sodium 139 (136-145) mmol/L Potassium 4.2 (3.5-5.1) mmol/L Chloride 102 (98-107) mmol/L Carbon Dioxide 30 (21-32) mmol/L Anion Gap 7 (3-11) BUN 17 (6-23) mg/dl Creatinine 0.92 (0.6-1.4) mg/dl Est Cr Clr Drug Dosing 54.7 ml/min Est GFR ( Amer) 86.4 ml/min Est GFR (Non-Af Amer) 74.5 ml/min BUN/Creatinine Ratio 18.5 (10-20) Glucose 136 H (70-99(Fasting)) mg/dl POC Glucose 133 H 137 H (70-99) mg/dl Estimat Average Glucose 171 mg/dl Hemoglobin A1c 7.6 H (4.5-5.6) % Calcium 9.1 D (8.6-10.3) mg/dl Magnesium 2.0 (1.7-2.4) mg/dl Total Bilirubin (0.2-1.0) mg/dl AST (13-39) U/L ALT (7-52) U/L Alkaline Phosphatase (34-104) U/L Troponin I High Sens (0-20) pg/ml Total Protein (6.0-8.3) gm/dl Albumin (3.4-5.0) gm/dl Globulin (2.5-4.0) gm/dl Albumin/Globulin Ratio (0.9-2) Urine Color Urine Appearance (Clear) Urine pH (4.5-7.5) Ur Specific Font[place] (1.000-1.030) Urine Protein (Negative) Urine Glucose (UA) (Negative) Urine Ketones (Negative) Urine Blood (Negative) Urine Nitrite (Negative) Urine Bilirubin (Negative) Urine Urobilinogen (Negative) Ur Leukocyte Esterase (Negative) 11/19/23 11/19/23 Range/Units 16:41 15:08 WBC 7.71 (4.8-10.8) K/ul RBC 4.40 L (4.70-6.10) M/uL Hgb 13.7 L (14.0-18.0) g/dl Hct 39.6 L (42.0-52.0) % MCV 90.0 (80.0-100.0) fL MCH 31.1 (25.0-34.0) pg MCHC 34.6 (32.0-36.0) g/dL RDW Std Deviation 44.6 (36.4-46.3) fL RDW Coeff of Anjel 13.6 (11.5-14.5) % Plt Count 179 (130-400) K/uL MPV 10.1 (9.4-12.4) fL Immature Gran % (Auto) 0.5 % Neut % (Auto) 75.8 % Lymph % (Auto) 16.5 % Gregg % (Auto) 4.9 % Eos % (Auto) 1.9 % Baso % (Auto) 0.4 % Neut # (Auto) 5.84 (1.40-6.50) K/uL Lymph # (Auto) 1.27 (1.20-3.40) K/uL Gregg # (Auto) 0.38 (0.11-0.59) K/uL Eos # (Auto) 0.15 (0.00-0.50) K/uL Baso # (Auto) 0.03 (0.00-0.20) K/uL Immature Gran # (Auto) 0.04 (0.01-0.20) K/uL PT 11.2 (9.0-12.0) Seconds INR 1.0 (0.9-1.1) APTT 28 (21-31) Seconds PTT Ratio 1.0 Sodium 138 (136-145) mmol/L Potassium 4.1 (3.5-5.1) mmol/L Chloride 109 H (98-107) mmol/L Carbon Dioxide 21 (21-32) mmol/L Anion Gap 8 (3-11) BUN 20 (6-23) mg/dl Creatinine 0.89 (0.6-1.4) mg/dl Est Cr Clr Drug Dosing 62.5 ml/min Est GFR ( Amer) 89.1 ml/min Est GFR (Non-Af Amer) 76.9 ml/min BUN/Creatinine Ratio 22.5 H (10-20) Glucose 138 H (70-99(Fasting)) mg/dl POC Glucose (70-99) mg/dl Estimat Average Glucose mg/dl Hemoglobin A1c (4.5-5.6) % Calcium 7.1 L (8.6-10.3) mg/dl Magnesium 1.3 L (1.7-2.4) mg/dl Total Bilirubin 0.4 (0.2-1.0) mg/dl AST 19 (13-39) U/L ALT 20 (7-52) U/L Alkaline Phosphatase 59 (34-104) U/L Troponin I High Sens 6.8 (0-20) pg/ml Total Protein 4.9 L (6.0-8.3) gm/dl Albumin 3.1 L (3.4-5.0) gm/dl Globulin 1.8 L (2.5-4.0) gm/dl Albumin/Globulin Ratio 1.7 (0.9-2) Urine Color Yellow Urine Appearance Clear (Clear) Urine pH 7.0 (4.5-7.5) Ur Specific Fontana 1.040 H (1.000-1.030) Urine Protein Negative (Negative) Urine Glucose (UA) Trace H (Negative) Urine Ketones Trace H (Negative) Urine Blood Negative (Negative) Urine Nitrite Negative (Negative) Urine Bilirubin Negative (Negative) Urine Urobilinogen Negative (Negative) Ur Leukocyte Esterase Negative (Negative) Medications Administered Current Inpatient Medications Aspirin (Aspirin 81 Mg Ectab) 81 mg PO QAM HAILEE Stop: 12/20/23 10:14 Atorvastatin Calcium (Atorvastatin 20 Mg Tab) 20 mg PO QAM HAILEE Stop: 12/20/23 10:14 Dextrose (Dextrose 50% 50 Ml Syringe) 25 - 50 ml IV UD PRN; Protocol PRN Reason: Hypoglycemia Protocol Stop: 12/19/23 19:17 Diclofenac Sodium (Diclofenac Sod 1% Gel 100 Gm Tube) 2 gm EXT BID HAILEE; Protocol Stop: 12/19/23 20:59 Last Admin: 11/20/23 10:04 Dose: Not Given Glucagon (Glucagon For Inj 1 Mg Vial) 1 mg SQ UD PRN; Protocol PRN Reason: Hypoglycemia Protocol Stop: 12/19/23 19:17 Glucose (Glucose 10 Tab/Tube) 4 - 8 tab PO UD PRN; Protocol PRN Reason: Hypoglycemia Treatment Stop: 12/19/23 19:17 Glucose (Glucose 40% Gel 15 Gm Tube) 15 - 30 gm PO UD PRN; Protocol PRN Reason: Hypoglycemia Protocol Stop: 12/19/23 19:17 Acetaminophen (Ofirmev) 1,000 mg in 100 mls @ 400 mls/hr IV Q8H HAILEE Stop: 11/23/23 12:04 Insulin Aspart (Insulin Aspart Per Unit Charge) 0 units SC ACHS HAILEE Stop: 12/19/23 20:59 Last Admin: 11/20/23 08:47 Dose: Not Given Labetalol HCl (Labetalol Hcl Iv 5 Mg/Ml 20ml) 20 mg IV Q4H PRN PRN Reason: Hypertension Stop: 12/19/23 16:56 Last Admin: 11/19/23 21:45 Dose: 20 mg Metoprolol Succinate (Metoprolol Succ 50mg Ext Rel Tab) 50 mg PO DAILY HAILEE Stop: 12/20/23 10:14 Miscellaneous (Carbohydrates For Hypoglycemia ) 15 - 30 gm PO UD PRN PRN Reason: Hypoglycemia Protocol Stop: 12/19/23 19:17 Morphine Sulfate (Morphine Sulfate 2 Mg/Ml Carp) 0.5 mg IV Q8H PRN PRN Reason: Pain Stop: 12/03/23 19:17 (2) Left wrist fracture Encounter type: initial encounter Fracture type: closed Qualified Code(s): S62.102A - Fracture of unspecified carpal bone, left wrist, initial encounter for closed fracture (3) Falls Encounter type: initial encounter Qualified Code(s): W19.XXXA - Unspecified fall, initial encounter (4) Atrial fibrillation Atrial fibrillation type: unspecified Qualified Code(s): I48.91 - Unspecified atrial fibrillation (5) Diabetes mellitus Diabetes mellitus complication status: without complication Diabetes mellitus exterminator termite insulin use: without exterminator termite use Diabetes mellitus type: type 2 Qualified Code(s): E11.9 - Type 2 diabetes mellitus without complications (6) Hypertension Hypertension type: primary hypertension Qualified Code(s): I10 - Essential (primary) hypertension
[2023-11-20 10:45] LABS: Chol HDL Ratio 3.1 (0-5)
--- NOTE | 2023-11-20 10:59 | Neurology Consultation ---
Date of Consultation November 20, 2023 Assessment & Plan (1) Thalamic stroke: Small vessel thalamic stroke, likely secondary to small vessel risk factors, age, HTN, DM rather than afib. Patient does not want anticoagulation which is understandable given his history. Would switch aspirin to plavix. Otherwise plan for therapy evals and placement back to assisted living. -- Switch aspirin 81mg daily to plavix 75mg daily -- Continue lipitor 20mg daily -- Therapy evals for placement -- Neurology follow-up in 4-6 weeks, please contact us with any further questions. Telehealth Consultation Telehealth Information Telehealth Information: I performed this visit using a real-time telehealth connection between my location and the patients location ([facility]). After connecting through interactive tele-video, patient was identified by name and date of and/or wristband check.Patient (or authorized healthcare cash application representative) was informed that this was a telemedicine visit and it was being conducted confidentially over secure lines. My office door was closed and no one else was present in the room with me.Patient (or authorized healthcare cash application representative) provided consent to proceed with the visit, expressed an understanding of privacy and security of the telemedicine visit, and gave permission to have a hospital cash application representative in the room in order to assist with the visit and to conduct portions of the visit, as needed. I informed the patient (or authorized healthcare cash application representative) that I reviewed their record and presented the opportunity for them to ask any questions regarding the visit today. The patient agreed to participate. History of Present Illness Reason for Consultation: R thalamic stroke Requesting Physician: Dr. Hernandez Attending Physician: Vipin Hernandez MD History of Present Illness Jacob Castillo is an 88 yo M presenting from his assisted living after two falls yesterday. Each fall was preceded by a feeling like he was going to black out after standing up. His daughter believes he was out of his HTN med for 10 days prior to these falls. On the second fall he likely broke his wrist but was unaware until it was pointed out to him by the ED. The patient denies any pain in his wrist. His daughter reports that his L arm is stronger than yesterday. No difficulty eating breakfast this morning. This is his 4th stroke, he was on xarelto for afib in the past but two years ago had a hemorrhagic transformation and has been on aspirin since. Allergies Allergy/AdvReac Type Severity Reaction Status Date / Time rivaroxaban [From Xarelto] AdvReac Mild instructed Verified 11/19/23 16:02 not to take due to hx of brain bleed Home Medications Medication Instructions Recorded Confirmed Type acetaminophen 500 mg tablet 500 mg PO Q4 PRN Pain 11/19/23 11/19/23 History (Tylenol Extra Strength) aspirin 81 mg tablet,delayed 81 mg PO DAILY 11/19/23 11/19/23 History release atorvastatin 20 mg tablet 20 mg PO HS 11/19/23 11/19/23 History celecoxib 100 mg capsule (Celebrex) 100 mg PO QAM 11/19/23 11/19/23 History docusate sodium 100 mg capsule 100 mg PO BID 11/19/23 11/19/23 History hydrochlorothiazide 25 mg tablet 12.5 mg PO DAILY 11/19/23 11/19/23 History isosorbide mononitrate 60 mg 30 mg PO QAM 11/19/23 11/19/23 History tablet,extended release 24 hr losartan 100 mg tablet 100 mg PO DAILY 11/19/23 11/19/23 History metformin 500 mg tablet 500 mg PO BID 11/19/23 11/19/23 History metoprolol succinate 50 mg 50 mg PO DAILY 11/19/23 11/19/23 History tablet,extended release 24 hr multivitamin 1 tab PO QAM 11/19/23 11/19/23 History omeprazole 20 mg capsule,delayed 20 mg PO DAILY 11/19/23 11/19/23 History release terbinafine HCl 1 % topical cream 1 applic topical BID 11/19/23 11/19/23 History Patient History Medical History Atrial fibrillation hx of 4-5yrs, currently has a loop recordered in placed---follows with Dr. River Wood Cerebral infarction x3--last Oct 2021--has limited visual field, uses a walker to ambulate; [facility] Constipation Diabetes mellitus Hearing loss Hypertension Overactive bladder Scoliosis Surgical History History of eye surgery History of hernia surgery History of left common carotid artery stent placement History of loop recorder currently in placed, placed Fall 2021 History of tooth extraction Status post trigger finger release Family History Other No family history of adverse response to anesthesia Denies family history of Crohn's disease Colorectal cancer Ulcerative colitis Social History (Updated 11/19/23 @ 18:30 by Juany Day PA-C) Smoking Status: Former smoker Second Hand Exposure: No; Do You Dip or Chew Tobacco: No; Hx Alcohol Use: No Hx Substance Use: No Preferred Language: Vietnamese Communication Ability: Effective Python Engineer Required: No Beliefs That Will Affect Care: None Current Living Situation: Jail Current Living Situation Comment: [facility] [place] current occupational status: retired Feels Safe at Home: Yes Assistive Devices: Glasses, Hearing Aid - Bilateral and Walker Review of Systems +L arm weakness Physical Exam Neurological Examination: Mental Status: Awake and alert. Oriented to person, place, and time. Fluent. Comprehension intact. Affect appropriate. Cranial Nerves: II: Reads NIHSS cards, pupils 3/3 to 2/2, lanier grossly intact. III/IV/: Versions intact without nystagmus, no gaze preference. V: Facial sensation symmetric to light touch VII: Facial expression symmetric VIII: Hearing intact to voice IX/X: Palate elevates symmetrically XI: Shoulder shrug symmetric XII: Tongue midline Motor: Strength was symmetric and antigravity throughout, limited by L wrist fracture but weaker generally in the LUE. Sensory: Reduced sensation on LUE. Reflexes: Unable to assess over telemedicine Results & Data Vital Signs (Past 12 Hours) Vital Signs Temp Pulse Pulse Resp BP Pulse Ox O2 Del Method 11/20/23 09:00 36.5 C 60 22 181/63 H 97 Room Air 11/20/23 05:17 57 L 11/20/23 02:50 36.6 C 74 18 156/77 H 96 Room Air 11/19/23 22:38 36.7 C 62 18 163/75 H 94 Room Air Diagnostic Findings MRI brain - Small R thalamic stroke
[2023-11-20] MEDS: METOPROLOL SUCC 50MG EXT REL TAB PO SCH (11:29)
[2023-11-20] MEDS: ATORVASTATIN 20 MG TAB PO SCH (11:29)
[2023-11-20] MEDS: ASPIRIN 81 MG ECTAB PO SCH (11:30)
[2023-11-20] MEDS: CLOPIDOGREL BISULFATE 75 MG TAB PO SCH (12:16)
[2023-11-20] MEDS: ACETAMINOPHEN 1,000 MG/100 ML VIAL IV SCH (12:21)
[2023-11-20 15:32] VITALS: RESP 18
[2023-11-21 06:17] LABS: Hematocrit (blood only) 40.4 % (42.0-52.0); Hemoglobin 14.1 g/dl (14.0-18.0); Mean Corpuscular Hemoglobin 30.9 pg (25.0-34.0); Mean Corpuscular Hgb Conc 34.9 g/dL (32.0-36.0); Mean Corpuscular Volume 88.4 fL (80.0-100.0); Platelet Count 180 K/uL (130-400); RDW Coefficient of Variation 13.9 % (11.5-14.5); RDW Standard Deviation 45.1 fL (36.4-46.3); Red Blood Count 4.57 M/uL (4.70-6.10); White Blood Count 6.63 K/ul (4.8-10.8)
[2023-11-21 06:41] LABS: BUN Creatinine Ratio 20.8 (10-20); Calcium 9.1 mg/dl (8.6-10.3); Creatinine Clr Calc Pharmacy 52.4 ml/min; Est GFR (Non-African American) 70.8 ml/min; Potassium 3.9 mmol/L (3.5-5.1)
[2023-11-21] MEDS: LOSARTAN POTASSIUM 50 MG TAB PO SCH (10:02)
[2023-11-21 11:43] VITALS: TEMP 97.7
--- NOTE | 2023-11-21 14:44 | Discharge Summary ---
Date of Service November 21, 2023 Admission HPI Per Admitting Provider This is an 88 y/o male with a history of prior CVA x 3, atrial fibrillation, not on AC due to prior hemorrhagic stroke, DM2, HTN, overactive bladder and other history as outlined below who presented from [facility] after a fall with associated dizziness, left arm weakness, and slurred speech. A stroke alert was called upon arrival to the ED. EMS noted left facial droop and left arm weakness upon evaluation. Additional history obtained from both patient and his daughter at the bedside. Pt apparently fell a couple of weeks ago - fell backwards with getting up. This morning around 4 am, pt went to get up to go to the bathroom and again felt like he was blacking out, falling onto his left wrist. Resultant weakness and sensation of numbness/tingling in the left hand after this fall. 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 After this fall, EMS was called and pt was brought to the ED. Initial work-up in the ED was negative for acute CVA. However, neurologist recommended referral for admission for additional work-up including MRI. Additionally, pt found to have left wrist fracture, likely from fall early this morning. Currently, pt continues to have numbness and tight sensation in his left wrist. Pt also notes new left perioral tingling but is unclear if the facial droop was new. His daughter notes that he has not been getting his losartan consistently due to an issue with the facility obtaining the medication due to insurance - review of the MAR shows that his last dose was three days ago. She also reports that pt has been inconsistent with taking his statin as she has found pills in his room at times. She reports that the Gemtesa was stopped as it was not helping pt's symptoms even though it is still on his med list from [facility]. Admission Exam Per Admitting Provider GENERAL APPEARANCE: AxOx3, generally well-appearing male, no acute distress HEENT: NC, AT. MMM. EOMI, clear conjunctiva, oropharynx clear. NECK: Supple without lymphadenopathy. No stiffness or restricted ROM. HEART: irregularly irregular LUNGS: CTAB, moving air well. No crackles or wheezes are heard. ABDOMEN: Soft, nontender, nondistended with good bowel sounds heard. EXTREMITIES: Without cyanosis, clubbing or edema. left wrist deformity radial deviation NEUROLOGICAL: Subtle right facial droop with nasolabial fold flattening, asymmetric smile (chronic), 5/5 strength lower extremities, RUE 5/5, proximal muscle strength 5/5 LUE, sensation altered fine touch left hand (2/2 fracture v related to perioral numbness?) Skin: Warm and dry without any rash. Principal Diagnosis Thalamic stroke Left wrist fracture Discharge Exam GENERAL: AxOx3, generally well-appearing male, no acute distress HEENT: NC, AT. MMM. EOMI, clear conjunctiva, oropharynx clear. NECK: Supple without lymphadenopathy. No stiffness or restricted ROM. HEART: regular w/ some ectopic beats LUNGS: CTAB, moving air well. No crackles or wheezes are heard. ABDOMEN: Soft, nontender, nondistended with good bowel sounds heard. EXTREMITIES: left wrist in dressings NEUROLOGICAL: Subtle right facial droop with nasolabial fold flattening, asymmetric smile (chronic), speech fluent, answers appropriately, moves extremities Skin: Warm and dry without any rash. Discharge Data Allergies Allergy/AdvReac Type Severity Reaction Status Date / Time rivaroxaban [From Xarelto] AdvReac Mild instructed Verified 11/19/23 16:02 not to take due to hx of brain bleed Consultations 11/19/23 15:23 ED Decision to Admit Stat 11/19/23 19:18 Consult Neurology Routine Consult Orthopedic Surgery Routine Ordered Studies 11/19/23 14:36 CT angio head w con Stat CT angio neck with con Stat CT head/brain wo con Stat 11/19/23 19:18 MRI Brain [MR brain wo con] Routine Hospital Course (1) Stroke-like symptoms: Per prior attending with addendum: Thalamic stroke This is an 88 y/o male with a history of prior CVA x 3, atrial fibrillation, not on AC due to prior hemorrhagic stroke, DM2, HTN, overactive bladder and other history as outlined below who presented from [facility] after a fall with associated dizziness, left arm weakness, and slurred speech. Stroke alert was called in the ED and initial work-up was negative for acute CVA. Pt was referred for admission for additional work-up. He is not anticoagulation as he developed hemorrhagic CVA with Xarelto. - pt has had at least three CVAs previously. -This is his 4th stroke, he was on xarelto for afib in the past but two years ago had a hemorrhagic transformation and has been on aspirin since. - MRI brain - 1. 7 mm ill-defined focus within the right thalamus is suggestive of an acute versus subacute lacunar infarct. 2. No acute or subacute territorial infarct, midline shift or intracranial hemorrhage. 3. Involutional changes with advanced chronic microvascular ischemic disease. 4. Chronic right occipital infarct. - Neuro checks per protocol - Check Echo - Neurology consulted - -- Switch aspirin 81mg daily to plavix 75mg daily -- Continue lipitor 20mg daily -- Therapy evals for placement -- Neurology follow-up in 4-6 weeks, please contact us with any further questions. - PT/OT evals (2) Left wrist fracture: Consult orthopedics for recommendations and splinting Scheduled IV acetaminophen with prn IV morphine for severe pain - discussed with patient the risk of delirium with opioids (3) Falls: Fall precautions PT/OT evaluation Orthostatic vitals (4) Atrial fibrillation: Not on anticoagulation due to prior hemorrhage on Xarelto Appears rate-controlled on current beta-rik - will continue to monitor (5) Diabetes mellitus: Holding Metformin Insulin sliding scale Current Hgb A1c 7.6% (6) Hypertension: Allowed permissive hypertension in view of recurrent falls, possible orthostasis, possible CVA - goal BP in the 140s to 150s for now Consider stopping HCTZ due to concern for orthostatic hypotension, especially since pt has not been eating well or drinking fluids consistently Plan Code Status: DNR/DNI DVT Prophylaxis: SCDs for now Addendum 11/21/2023: Patient was seen and examined at bedside as a follow-up of thalamic stroke and left wrist fracture. Patient was sitting up in chair, on room air, hemodynamically stable, reports fairly okay p.o. intake/not so great intake per patient. Denies any new weakness or complaints. Reports pain under control. Left wrist with splint. Orthopedics communicated w/ RN that the patient is okay to be discharged from their point of view and they would like to see the patient as an outpatient. He is being discharged to rehab with following instruction at the point of discharge: Follow-up with your primary care physician within a week time and likely you will need labs CBC/CMP/magnesium/phosphorus. You were found to have thalamic stroke, neurology evaluated, your aspirin has been switched to Plavix. Now that you are on Plavix, avoid omeprazole. You can use famotidine or pantoprazole for your reflux symptoms if needed. Follow-up with neurology in 4 to 6 weeks time upon discharge. For your left wrist fracture, orthopedics evaluated you, they put in a splint, they would like to evaluate/manage you further as an outpatient. Follow-up with orthopedics in 1 to 2 weeks upon discharge. Avoid pressure/load on your left wrist until you are evaluated by orthopedics as an outpatient. Take your medications as prescribed. Please make sure that you are able to get your medications today by calling your pharmacy before you leave the hospital so that your treatment continuity is not broken. Home Health Attestation I certify that this patient is under my care and that I, or a physicians animal care assistant working with me, had a face to-face encounter that meets the home health [id number] encounter requirements with this patient. The encounter with the patient was in whole, or in part, for the following medical condition, which is the primary reason for home health care (list medical condition): I certify that, based on my findings, the following services are medically necessary home health services: My clinical findings support the need for the above services because: Further, I certify that my clinical findings support that this patient is homebound (i.e. absences from home require considerable and taxing effort and are for medical reasons or [facility] or infrequently or of short duration when for other reasons) because: Certification for Home Health Services: Based on the above findings, I certify that this patient is confined to the home and needs intermittent long term care, physical therapy and/or speech therapy or continues to need occupational therapy. The patient is under my care, and I have initiated the establishment of the plan of care. This patient will be followed by a physician who will periodically review the plan of care. Total Time Total Time Spent Total Time Spent (In Minutes): 45 Discharge Plan Discharge Items Patient Disposition: Transfer Inpatient Rehab Fac Reason For Visit: STROKE-LIKE SYMPTOMS, WRIST FRACTURE Discharge Diagnosis: Thalamic stroke Left wrist fracture Activity: As commented below Activity Comment: Avoid load on left wrist until evaluated by Ortho as outpatient. c/w PT/OT. Non-emergency contact: Primary Care Provider Call non-emergency contact if: you have any medication questions, your symptoms worsen and your temperature is above 101 Follow-up/Referrals: River Zavaleta MD [Primary Care Provider] - Diet: Carb Consistent or DM2 Addtl Attending Provider Instructions: Follow-up with your primary care physician within a week time and likely you will need labs CBC/CMP/magnesium/phosphorus. You were found to have thalamic stroke, neurology evaluated, your aspirin has been switched to Plavix. Now that you are on Plavix, avoid omeprazole. You can use famotidine or pantoprazole for your reflux symptoms if needed. Follow-up with neurology in 4 to 6 weeks time upon discharge. For your left wrist fracture, orthopedics evaluated you, they put in a splint, they would like to evaluate/manage you further as an outpatient. Follow-up with orthopedics in 1 to 2 weeks upon discharge. Avoid pressure/load on your left wrist until you are evaluated by orthopedics as an outpatient. Take your medications as prescribed. Please make sure that you are able to get your medications today by calling your pharmacy before you leave the hospital so that your treatment continuity is not broken. Pending Studies at Discharge: No Stand-Alone Forms: My [facility] Skilled Items Patient informed of condition?: Yes DNR: Yes Discharge Level of Care: Acute rehab Communicable Disease: No Discharge Prognosis: Stable Lines: None Urinary Catheter: No Medications and DC Order Prescriptions: New clopidogrel 75 mg Tablet 75 mg PO QAM Qty: 30 0RF diclofenac sodium [Voltaren Arthritis Pain] 1 % Gel 2 g EXT BID PRN (Reason: left wrist) Qty: 100 0RF Continued multivitamin Tablet 1 tab PO QAM terbinafine HCl 1 % Cream 1 applic TOPICAL BID Rx Instructions: Apply to feet metformin 500 mg Tablet 500 mg PO BID atorvastatin 20 mg Tablet 20 mg PO HS metoprolol succinate 50 mg Tablet Extended Release 24 Hr 50 mg PO DAILY acetaminophen [Tylenol Extra Strength] 500 mg Tablet 500 mg PO Q4 PRN (Reason: Pain) isosorbide mononitrate [Imdur] 60 mg Tablet Extended Release 24 Hr 30 mg PO QAM Rx Instructions: Take 1/2 daily docusate sodium 100 mg Capsule 100 mg PO BID celecoxib [Celebrex] 100 mg Capsule 100 mg PO QAM losartan 100 mg Tablet 100 mg PO DAILY Held hydrochlorothiazide 25 mg Tablet 12.5 mg PO DAILY Hold Instructions: Resume on 11/28/23. Consider resuming after PCP eval in a week time. Held at discharge due to poor PO food/fluid intake at hospital. Rx Instructions: Take 1/2 tab Discontinued aspirin [Aspir-Low] 81 mg Tablet,Delayed Release (Dr/Ec) 81 mg PO DAILY omeprazole 20 mg Capsule,Delayed Release(Dr/Ec) 20 mg PO DAILY Discharge Orders: Discharge Order (Routine); Ordered 11/21/23 Ordered By: Dylan Miramontes/Other Patient Handouts: Managing Type 2 Diabetes Admission Data Admit Date/Time: 11/19/23 16:11 Attending Provider: Dylan Acuna Admit Provider: Kacy Barillas Primary Care Provider: River Zavaleta Other Providers: Kacy Barillas; Zia Mendez; Faustino Velasco; [facility]
[2023-11-21 15:43] VITALS: BP 134/70; PULSE 59; O2SAT 97
== END 2023-11-21 18:22 | DRG 66 ==
LOC: ED 14:40 → SUATTDRO 16:11 → 2S 16:11
DX: R47.1 Dysarthria and anarthria; Y92.89 Other specified places as the place of occurrence of the external cause; I63.81 Other cerebral infarction due to occlusion or stenosis of small artery; I48.91 Unspecified atrial fibrillation; Z66 Do not resuscitate; I10 Essential (primary) hypertension; W18.30XA Fall on same level, unspecified, initial encounter; Z86.73 Personal history of transient ischemic attack (TIA), and cerebral infarction without residual deficits; Z88.8 Allergy status to other drugs, medicaments and biological substances; S62.012A Displaced fracture of distal pole of navicular [scaphoid] bone of left wrist, initial encounter for closed fracture; Z96.89 Presence of other specified functional implants; Z87.891 Personal history of nicotine dependence; E11.9 Type 2 diabetes mellitus without complications; N32.81 Overactive bladder; G83.24 Monoplegia of upper limb affecting left nondominant side